=== PATIENT | male | born 2000 | race African-American/Black ===

== ENCOUNTER 2023-02-16 09:07 | Emergency (ER) | payer OTHER ==
[~2023-02-16] VITALS: Ht 180.3 cm; Wt 110.9 kg
[2023-02-16 09:46] VITALS: BP 131/76
[2023-02-16] MEDS ORDERED: CLIN300C58 PO (09:54)
[2023-02-16] MEDS ORDERED: SULF-261 PO (09:54)
[2023-02-16] MEDS ORDERED: IBUP-1492 PO (09:54)
== END 2023-02-16 10:12 | disposition home or self-care (01) ==
LOC: EMS 09:14
DX: K61.1 Rectal abscess (principal)
CPT/HCPCS: 99283; Z7502

== ENCOUNTER 2023-04-01 15:42 | Emergency (ER) | payer OTHER ==
[~2023-04-01] VITALS: Ht 180.3 cm; Wt 104.5 kg
[~2023-04-01 15:42] MED LIST: CLIN300C58 PO; IBUP-1492 PO; SULF-261 PO
[2023-04-01] MEDS ORDERED: CLIN300C58 PO (16:12)
[2023-04-01] MEDS ORDERED: IBUP-1492 PO (16:12)
[2023-04-01] MEDS ORDERED: SULF-261 PO (16:12)
[2023-04-01 16:44] VITALS: BP 129/84
== END 2023-04-01 16:58 | disposition home or self-care (01) ==
LOC: EMS 15:48
DX: L05.01 Pilonidal cyst with abscess (principal)
CPT/HCPCS: 99283; Z7502

== ENCOUNTER 2023-08-21 10:23 | Emergency (ER) | payer OTHER ==
[~2023-08-21] VITALS: Ht 180.3 cm; Wt 109.1 kg
[2023-08-21 10:39] VITALS: TEMP 100.6
[2023-08-21] MEDS ORDERED: DOXY100C5 PO (10:41)
[2023-08-21] MEDS ORDERED: VANCOMYCIN 1GM/WATER(PEG/NADA) 200 ML IV ONE (12:45)
[2023-08-21] MEDS ORDERED: SODIUM CHLORIDE 0.9% 2,000 ML IV ONE (12:45)
[2023-08-21] MEDS ORDERED: ACETAMINOPHEN 500 MG TABLET PO ONE (12:45)
[2023-08-21] MEDS ORDERED: PIPERACILLIN/TAZO 3.375 GM/D5W 50 ML IV ONE (12:45)
[2023-08-21] MEDS ORDERED: ADAL80PE SQ (12:48)
[2023-08-21 13:37] LABS: BASOPHILS % (AUTO) 0.5 % (0.0-2.0); EOSINOPHILS % (AUTO) 0.5 % (1.0-6.0); HEMATOCRIT 40.7 % (41-53); HEMOGLOBIN 13.4 g/dL (13.5-17.5); LYMPHOCYTES # (AUTO) 2.7 K/uL (1.0-4.8); LYMPHOCYTES % (AUTO) 18.6 % (22.0-44.0); MEAN CORPUSCULAR HEMOGLOBIN 26.9 pg (26.0-34.0); MEAN CORPUSCULAR HGB CONC 32.9 G/dL (31.0-37.0); MEAN CORPUSCULAR VOLUME 82 fL (80-100); MONOCYTES # (AUTO) 1.1 K/uL (0.1-1.0); MONOCYTES % (AUTO) 7.8 % (2.0-9.0); NEUTROPHILS # (AUTO) 10.6 K/uL (1.8-7.7); NEUTROPHILS % (AUTO) 72.6 % (40.0-70.0); PLATELET COUNT (AUTO) 462 K/uL (150-450); RED BLOOD CELL COUNT(AUTO) 4.98 MIL/uL (4.50-5.90); RED CELL DISTRIBUTION WIDTH 13.2 % (11.5-14.5); WHITE BLOOD COUNT (AUTO) 14.5 K/uL (4.5-11.0)
[2023-08-21 14:00] LABS: LACTIC ACID 1.2 mmol/L (0.4-2.0)
[2023-08-21 14:33] LABS: ANION GAP 11 mmol/L (8-16); CALCIUM, TOTAL 9.3 mg/dL (8.8-10.5); CARBON DIOXIDE 26 mmol/L (22-29); CHLORIDE 100 mmol/L (98-107); CREATININE 1.09 mg/dL (0.60-1.30); GLOMERULAR FILTR. RATE CALC > 60 mL/min (>60); GLUCOSE,RANDOM 84 mg/dL (70-110); POTASSIUM 3.6 mmol/L (3.5-5.1); SODIUM SERUM 137 mmol/L (136-145); UREA NITROGEN, BLOOD 11 mg/dL (7-18)
[2023-08-21 14:38] LABS: ALANINE AMINOTRANSFERASE 37 U/L (12-78); ALBUMIN 3.8 g/dL (3.4-5.0); ALKALINE PHOSPHATASE 106 U/L (46-116); ASPARTATE AMINOTRANSFERASE 24 U/L (15-37); BILIRUBIN,TOTAL 0.5 mg/dL (0.1-1.0); LIPASE 21 U/L (16-77); TOTAL PROTEIN, SERUM 8.9 g/dL (6.4-8.2)
[2023-08-21] MEDS ORDERED: HYDROmorphone HCL 2 MG/ML SYRINGE IM ONE (15:15)
[2023-08-21] MEDS ORDERED: ONDANSETRON HCL 4 MG/2 ML VIAL IM ONE (15:15)
[2023-08-21] MEDS ORDERED: ONDANSETRON HCL 4 MG/2 ML VIAL IVP ONE (15:30)
[2023-08-21] MEDS ORDERED: HYDROmorphone HCL 2 MG/ML SYRINGE IVP ONE (15:30)
[2023-08-21] MEDS ORDERED: IBUP-1554 PO (17:03)
[2023-08-21] MEDS ORDERED: POLY238P PO (17:03)
[2023-08-21] MEDS ORDERED: HYDR-4072 PO (17:03)
[2023-08-21] MEDS ORDERED: CEPH-558 PO (17:03)
[2023-08-21 17:24] VITALS: BP 126/81; PULSE 74; RESP 16
== END 2023-08-21 17:34 | disposition home or self-care (01) ==
LOC: EMS 10:28
DX: L05.01 Pilonidal cyst with abscess (principal)
CPT/HCPCS: 10080; 99284; 96365; 96375; 80053; 83605; 83690; 85025; 87040; 36415; 96368; 84145; J1170; J2405; J2543; Q9967; J7030

== ENCOUNTER 2023-08-24 09:24 | Emergency (ER) | payer OTHER ==
[~2023-08-24] VITALS: Ht 180.3 cm; Wt 106.8 kg
[~2023-08-24 09:24] MED LIST changes: +ADAL80PE SQ; +CEPH-558 PO; -CLIN300C58 PO; +DOXY100C5 PO; +HYDR-4072 PO; -IBUP-1492 PO; +IBUP-1554 PO; +POLY238P PO; -SULF-261 PO
[2023-08-24] MEDS ORDERED: unknown antibiotic PO (09:27)
[2023-08-24 09:30] VITALS: TEMP 98.3
[2023-08-24 10:43] VITALS: BP 138/66; PULSE 80; RESP 18
== END 2023-08-24 10:48 | disposition home or self-care (01) ==
LOC: EMS 09:27
DX: L05.01 Pilonidal cyst with abscess (principal); Z48.00 Encounter for change or removal of nonsurgical wound dressing
CPT/HCPCS: 99281; Z7502

== ENCOUNTER 2023-10-28 16:52 | Inpatient (IN) | payer MEDICAID, OTHER ==
[~2023-10-28] VITALS: Ht 180.3 cm; Wt 81.8 kg
[~2023-10-28 16:52] MED LIST changes: +ADAL40PE5 SQ; -ADAL80PE SQ; +AMOX1TAB16 PO; -CEPH-558 PO; -DOXY100C5 PO; -IBUP-1554 PO; -POLY238P PO; +POLY510P31 PO
[2023-10-28] MEDS ORDERED: CefTRIAXone 1 GM/DEXTROSE 50 ML IV ONE (18:00)
[2023-10-28] MEDS ORDERED: 0.9% SODIUM CHLORIDE 10 ML SYRINGE IVP PRN (18:00)
[2023-10-28] MEDS ORDERED: ONDANSETRON HCL 4 MG/2 ML VIAL IVP ONE (18:00)
[2023-10-28] MEDS ORDERED: SODIUM CHLORIDE 0.9% 2,450 ML IV ONE (18:00)
[2023-10-28] MEDS ORDERED: HYDROmorphone HCL 2 MG/ML SYRINGE IVP ONE (18:00)
[2023-10-28 18:31] LABS: BASOPHILS % (AUTO) 0.9 % (0.0-2.0); EOSINOPHILS % (AUTO) 1.4 % (1.0-6.0); HEMATOCRIT 34.7 % (41-53); HEMOGLOBIN 11.3 g/dL (13.5-17.5); LYMPHOCYTES # (AUTO) 2.6 K/uL (1.0-4.8); LYMPHOCYTES % (AUTO) 26.3 % (22.0-44.0); MEAN CORPUSCULAR HEMOGLOBIN 26.7 pg (26.0-34.0); MEAN CORPUSCULAR HGB CONC 32.5 G/dL (31.0-37.0); MEAN CORPUSCULAR VOLUME 82 fL (80-100); MONOCYTES % (AUTO) 10.1 % (2.0-9.0); NEUTROPHILS # (AUTO) 6.1 K/uL (1.8-7.7); NEUTROPHILS % (AUTO) 61.3 % (40.0-70.0); PLATELET COUNT (AUTO) 424 K/uL (150-450); RED BLOOD CELL COUNT(AUTO) 4.23 MIL/uL (4.50-5.90); RED CELL DISTRIBUTION WIDTH 13.9 % (11.5-14.5)
[2023-10-28 18:43] LABS: ANION GAP 9 mmol/L (8-16); CARBON DIOXIDE 25 mmol/L (22-29); CHLORIDE 104 mmol/L (98-107); CREATININE 1.03 mg/dL (0.60-1.30); GLOMERULAR FILTR. RATE CALC > 60 mL/min (>60); GLUCOSE,RANDOM 93 mg/dL (70-110); POTASSIUM 3.5 mmol/L (3.5-5.1); SODIUM SERUM 138 mmol/L (136-145); UREA NITROGEN, BLOOD 6 mg/dL (7-18)
[2023-10-28 18:46] LABS: PROTHROMBIN TIME 10.9 SEC (9.4-11.6)
[2023-10-28 18:48] LABS: ALANINE AMINOTRANSFERASE 24 U/L (12-78); ALBUMIN 3.3 g/dL (3.4-5.0); ALKALINE PHOSPHATASE 95 U/L (46-116); ASPARTATE AMINOTRANSFERASE 22 U/L (15-37); BILIRUBIN,TOTAL 0.5 mg/dL (0.1-1.0); TOTAL PROTEIN, SERUM 8.4 g/dL (6.4-8.2)
[2023-10-28 18:53] LABS: LACTIC ACID 1.6 mmol/L (0.4-2.0)
[2023-10-28] MEDS ORDERED: MORPHINE SULFATE 2 MG/ML SYRINGE IVP PRN (20:30)
[2023-10-28] MEDS ORDERED: MetroNIDAZOLE 500 MG/NACL 100 ML IV ONE (20:30)
[2023-10-28] MEDS ORDERED: ONDANSETRON HCL 4 MG/2 ML VIAL IVP PRN (20:30)
[2023-10-28] MEDS ORDERED: ACETAMINOPHEN 325 MG TABLET PO PRN (20:30)
[2023-10-28] MEDS: CeFAZolin 1 GM/DEXTROSE 50 ML IV SCH (21:00)
[2023-10-28] MEDS: RINGERS SOLUTION,LACTATED 1,000 ML IV SCH (21:00)
[2023-10-28] MEDS: DOCUSATE SODIUM 100 MG CAPSULE PO SCH (21:00)
[2023-10-28 22:22] LABS: COVID AG,FIA SOURCE NASAL SWAB
[2023-10-28 22:28] LABS: APPEARANCE,URINE CLEAR (CLEAR); BILIRUBIN,URINE NEGATIVE (NEGATIVE); COLOR,URINE YELLOW (YELLOW); GLUCOSE, URINE (UA) NEGATIVE (NEGATIVE); KETONES,URINE TRACE mg/dL (NEGATIVE); LEUKOCYTE ESTERASE ,URINE NEGATIVE (NEGATIVE); NITRATE,URINE NEGATIVE (NEGATIVE); OCCULT BLOOD,URINE NEGATIVE (NEGATIVE); PH,URINE 6.5 (5.0-8.0); PROTEIN,URINE 30-70 mg/dL (NEGATIVE); SPECIFIC GRAVITIY, URINE 1.022 (1.003-1.030)
[2023-10-28 22:39] LABS: SARS-COV2 (COVID) ANTIGEN,FIA Negative (Negative)
[2023-10-29] MEDS: HEPARIN SODIUM,PORCINE 5,000 UNITS/ML VIAL SQ SCH ×5 (00:11→23:21)
[2023-10-29] MEDS: CeFAZolin 1 GM/DEXTROSE 50 ML IV SCH ×3 (04:30→21:18)
[2023-10-29] MEDS: RINGERS SOLUTION,LACTATED 1,000 ML IV SCH (04:30)
[2023-10-29] MEDS: MetroNIDAZOLE 500 MG TABLET PO SCH ×5 (06:00→21:19)
[2023-10-29 06:56] LABS: BASOPHILS % (AUTO) 1.1 % (0.0-2.0); EOSINOPHILS % (AUTO) 2.1 % (1.0-6.0); HEMOGLOBIN 11.1 g/dL (13.5-17.5); LYMPHOCYTES # (AUTO) 2.5 K/uL (1.0-4.8); LYMPHOCYTES % (AUTO) 29.6 % (22.0-44.0); MEAN CORPUSCULAR HEMOGLOBIN 27.5 pg (26.0-34.0); MEAN CORPUSCULAR HGB CONC 33.6 G/dL (31.0-37.0); MEAN CORPUSCULAR VOLUME 82 fL (80-100); MONOCYTES % (AUTO) 11.2 % (2.0-9.0); NEUTROPHILS # (AUTO) 4.8 K/uL (1.8-7.7); PLATELET COUNT (AUTO) 401 K/uL (150-450); RED BLOOD CELL COUNT(AUTO) 4.04 MIL/uL (4.50-5.90); RED CELL DISTRIBUTION WIDTH 13.5 % (11.5-14.5); WHITE BLOOD COUNT (AUTO) 8.5 K/uL (4.5-11.0)
[2023-10-29 07:11] LABS: ANION GAP 7 mmol/L (8-16); CALCIUM, TOTAL 8.3 mg/dL (8.8-10.5); CARBON DIOXIDE 28 mmol/L (22-29); CHLORIDE 103 mmol/L (98-107); CREATININE 0.84 mg/dL (0.60-1.30); GLOMERULAR FILTR. RATE CALC > 60 mL/min (>60); GLUCOSE,RANDOM 101 mg/dL (70-110); POTASSIUM 3.5 mmol/L (3.5-5.1); SODIUM SERUM 138 mmol/L (136-145); UREA NITROGEN, BLOOD 4 mg/dL (7-18)
[2023-10-29] MEDS: DOCUSATE SODIUM 100 MG CAPSULE PO SCH ×3 (08:50→21:19)
[2023-10-29] MEDS ORDERED: RINGERS SOLUTION,LACTATED 1,000 ML IV ONE ×2 (09:13→09:30)
[2023-10-29] MEDS ORDERED: ETHYL ALCOHOL 62% ANTISEPTIC NASAL SANITIZER 0.6 ML AMPUL NASAL ONE (09:45)
[2023-10-29] MEDS ORDERED: BUPIVACAINE HCL/PF 0.5% 30 ML VIAL ONE (10:15)
[2023-10-29] MEDS ORDERED: LIDOCAINE 2%/EPI 1:200,000/PF 20 ML VIAL ONE (10:15)
[2023-10-29] MEDS ORDERED: SODIUM CL IRRIG SOLN BAG 3,000 ML IRRIG ONE (10:16)
[2023-10-29] MEDS ORDERED: ONDANSETRON HCL 4 MG/2 ML VIAL IM PRN (11:15)
[2023-10-29] MEDS ORDERED: HYDROCODONE/ACETAMINOPHEN 5-325 MG TABLET PO PRN (11:15)
[2023-10-29] MEDS ORDERED: MORPHINE SULFATE 2 MG/ML SYRINGE IVP PRN (11:15)
[2023-10-29] MEDS ORDERED: ACETAMINOPHEN 500 MG TABLET PO PRN (11:15)
[2023-10-29] MEDS ORDERED: IBUPROFEN 800 MG TABLET PO PRN (11:15)
[2023-10-29] MEDS ORDERED: CeFAZolin 1 GM/DEXTROSE 50 ML IV ONE (12:19)
[2023-10-29] MEDS ORDERED: INFLUENZA VIRUS VACCINE QVS 2023-24 (6MO+)/PF 60 MCG/0.5 ML SYRINGE IM. ONE (13:45)
[2023-10-29 17:13] VITALS: BP 115/61; PULSE 76; RESP 20; TEMP 98.3
[2023-10-29 20:02] VITALS: BP 124/57; PULSE 63; RESP 20; TEMP 99.3
[2023-10-29] MEDS ORDERED: SODIUM CHLORIDE 0.9% 250 ML IV ONE (21:05)
[2023-10-30] MEDS ORDERED: LIDOCAINE/PF 2% 5 ML VIAL IM ONE (01:18)
[2023-10-30] MEDS ORDERED: SUGAMMADEX SODIUM 200 MG/2 ML VIAL IVP ONE (01:18)
[2023-10-30] MEDS ORDERED: DEXAMETHASONE SOD PHOS 4 MG/ML VIAL IVP ONE (01:18)
[2023-10-30] MEDS ORDERED: MIDAZOLAM HCL 2 MG/2 ML VIAL IVP ONE (01:18)
[2023-10-30] MEDS ORDERED: FentaNYL CITRATE PF 100 MCG/2 ML VIAL IVP ONE (01:18)
[2023-10-30] MEDS ORDERED: ROCURONIUM BROMIDE 10 MG/ML 5 ML VIAL IVP ONE (01:18)
[2023-10-30] MEDS ORDERED: PROPOFOL 1% 20 ML VIAL IVP ONE (01:18)
[2023-10-30 03:58] VITALS: BP 108/61; PULSE 56; RESP 18; TEMP 97.8
[2023-10-30] MEDS: CeFAZolin 1 GM/DEXTROSE 50 ML IV SCH ×3 (04:00→21:23)
[2023-10-30] MEDS: RINGERS SOLUTION,LACTATED 1,000 ML IV SCH (06:00)
[2023-10-30] MEDS: HEPARIN SODIUM,PORCINE 5,000 UNITS/ML VIAL SQ SCH ×2 (08:00→16:00)
[2023-10-30] MEDS: MetroNIDAZOLE 500 MG TABLET PO SCH ×3 (09:07→21:23)
[2023-10-30] MEDS: DOCUSATE SODIUM 100 MG CAPSULE PO SCH ×2 (09:07→21:00)
[2023-10-30 09:09] VITALS: BP 121/58; PULSE 51; RESP 20; TEMP 98
[2023-10-30 17:02] VITALS: BP 127/67; PULSE 63; RESP 20; TEMP 98.4
[2023-10-30 20:05] VITALS: BP 102/54; PULSE 57; RESP 18; TEMP 98.2
[2023-10-31 04:35] VITALS: BP 112/62; PULSE 62; RESP 20; TEMP 98.2
[2023-10-31] MEDS: CeFAZolin 1 GM/DEXTROSE 50 ML IV SCH ×2 (05:22→13:13)
[2023-10-31] MEDS: HEPARIN SODIUM,PORCINE 5,000 UNITS/ML VIAL SQ SCH ×2 (08:00)
[2023-10-31] MEDS: MetroNIDAZOLE 500 MG TABLET PO SCH (08:12)
[2023-10-31] MEDS: DOCUSATE SODIUM 100 MG CAPSULE PO SCH (08:12)
[2023-10-31 09:08] VITALS: BP 116/62; PULSE 49; RESP 20; TEMP 97.9
[2023-10-31] MEDS ORDERED: IBUP-1493 PO (14:47)
[2023-10-31] MEDS ORDERED: AMOX1TAB16 PO (14:47)
[2023-10-31] MEDS ORDERED: METR500 PO (14:47)
== END 2023-10-31 16:01 | disposition home or self-care (01) | DRG 223 ==
LOC: EMS 17:26 → AHU 23:37 → 6S 10-29 16:49
PROVIDERS: ADMIT Internal Medicine; ATTEND Internal Medicine
PROC: 0D9P0ZZ Drainage of Rectum, Open Approach (ICD-10-PCS; principal; 2023-10-29 10:50)
DX: K61.2 Anorectal abscess (principal); D64.9 Anemia, unspecified; Z20.822 Contact with and (suspected) exposure to COVID-19
CPT/HCPCS: 71045; 80048; 80053; 81003; 83605; 83735; 84145; 85025; 85610; 87040; 87070; 87081; 87101; 87205; 93005; 99285; G0378; J0690; J0696; J1100; J1170; J1644; J2250; J2405; J2704; J3010; J3490; J7030; J7050; J7120; Q9967; 36415-L1; 36415-TC

== ENCOUNTER 2024-10-29 10:32 | Inpatient (IN) | payer MEDICAID, OTHER ==
[~2024-10-29] VITALS: Ht 180.3 cm; Wt 119.4 kg
[~2024-10-29 10:32] MED LIST changes: +AMOX-457 PO; -AMOX1TAB16 PO; +IBUP-1493 PO; +METR500 PO
[2024-10-29] MEDS ORDERED: 0.9% SODIUM CHLORIDE 10 ML SYRINGE IVP ONE (11:26)
[2024-10-29 11:27] LABS: BASOPHILS % (AUTO) 0.4 % (0.0-2.0); EOSINOPHILS % (AUTO) 0.6 % (1.0-6.0); HEMATOCRIT 40.9 % (41-53); HEMOGLOBIN 13.3 g/dL (13.5-17.5); LYMPHOCYTES # (AUTO) 2.4 K/uL (1.0-4.8); LYMPHOCYTES % (AUTO) 14.7 % (22.0-44.0); MEAN CORPUSCULAR HEMOGLOBIN 26.6 pg (26.0-34.0); MEAN CORPUSCULAR HGB CONC 32.6 G/dL (31.0-37.0); MEAN CORPUSCULAR VOLUME 82 fL (80-100); MONOCYTES # (AUTO) 1.2 K/uL (0.1-1.0); MONOCYTES % (AUTO) 7.5 % (2.0-9.0); NEUTROPHILS # (AUTO) 12.3 K/uL (1.8-7.7); NEUTROPHILS % (AUTO) 76.8 % (40.0-70.0); PLATELET COUNT (AUTO) 440 K/uL (150-450); RED BLOOD CELL COUNT(AUTO) 5.01 MIL/uL (4.50-5.90); RED CELL DISTRIBUTION WIDTH 12.8 % (11.5-14.5); WHITE BLOOD COUNT (AUTO) 16.1 K/uL (4.5-11.0)
[2024-10-29] MEDS ORDERED: IOHEXOL 350 MG/ML 100 ML VIAL ONE (11:27)
[2024-10-29] MEDS ORDERED: SODIUM CHLORIDE 0.9% 100 ML ONE (11:27)
[2024-10-29 11:42] LABS: ANION GAP 10 mmol/L (8-16); CALCIUM, TOTAL 8.9 mg/dL (8.8-10.5); CARBON DIOXIDE 28 mmol/L (22-29); CHLORIDE 101 mmol/L (98-107); CREATININE 1.24 mg/dL (0.60-1.30); GLOMERULAR FILTR. RATE CALC > 60 mL/min (>60); GLUCOSE,RANDOM 119 mg/dL (70-110); POTASSIUM 3.6 mmol/L (3.5-5.1); SODIUM SERUM 139 mmol/L (136-145); UREA NITROGEN, BLOOD 9 mg/dL (7-18)
[2024-10-29] MEDS: ACETAMINOPHEN 500 MG TABLET PO ONE (11:48)
[2024-10-29] MEDS: KETOROLAC TROMETHAMINE 30 MG/ML VIAL IVP ONE (11:48)
[2024-10-29] MEDS ORDERED: KETOROLAC TROMETHAMINE 60 MG/2 ML VIAL IM ONE (12:00)
[2024-10-29] MEDS ORDERED: PROPOFOL 1% ISO-OSM 1000 MG/100 ML BOTTLE IV ONE (12:00)
[2024-10-29] MEDS ORDERED: GLYCOPYRROLATE 0.2 MG/ML VIAL IM ONE (12:00)
[2024-10-29] MEDS ORDERED: DEXAMETHASONE SOD PHOS 4 MG/ML VIAL IVP ONE (12:00)
[2024-10-29] MEDS ORDERED: CeFAZolin SODIUM 1 GM VIAL IVP ONE (12:00)
[2024-10-29] MEDS ORDERED: SUCCINYLCHOLINE CHLORIDE 20 MG/ML 10 ML VIAL IVP ONE (12:00)
[2024-10-29] MEDS ORDERED: ONDANSETRON HCL 4 MG/2 ML VIAL IVP ONE (12:00)
[2024-10-29] MEDS ORDERED: METOCLOPRAMIDE HCL 5 MG/ML 2 ML VIAL IVP ONE (12:00)
[2024-10-29] MEDS ORDERED: FentaNYL CITRATE PF 100 MCG/2 ML VIAL IVP ONE (12:00)
[2024-10-29] MEDS ORDERED: MIDAZOLAM HCL 2 MG/2 ML VIAL IVP ONE (12:00)
[2024-10-29] MEDS ORDERED: LIDOCAINE/PF 2% 5 ML VIAL IM ONE (12:00)
[2024-10-29] MEDS: SODIUM CHLORIDE 0.9% 1,000 ML IV ONE (13:59)
[2024-10-29] MEDS: MetroNIDAZOLE 500 MG/NACL 100 ML IV ONE (13:59)
[2024-10-29] MEDS ORDERED: SODIUM CHLORIDE 0.9% 1,000 ML IV ONE (14:00)
[2024-10-29] MEDS ORDERED: SODIUM CHLORIDE 0.9% 1,600 ML IV ONE (14:00)
[2024-10-29] MEDS ORDERED: ACETAMINOPHEN 325 MG TABLET PO PRN (14:15)
[2024-10-29] MEDS ORDERED: MORPHINE SULFATE 2 MG/ML SYRINGE IVP PRN (14:15)
[2024-10-29] MEDS ORDERED: ZOLPIDEM TARTRATE 5 MG TABLET PO PRN (14:15)
[2024-10-29] MEDS ORDERED: ONDANSETRON HCL 4 MG/2 ML VIAL IVP PRN (14:15)
[2024-10-29 14:44] LABS: LACTIC ACID 0.6 mmol/L (0.4-2.0)
[2024-10-29] MEDS: LEVOFLOXACIN 750 MG/D5% WATER 150 ML IV ONE (14:58)
[2024-10-29 15:18] LABS: APPEARANCE,URINE CLEAR (CLEAR); BILIRUBIN,URINE NEGATIVE (NEGATIVE); COLOR,URINE YELLOW (YELLOW); GLUCOSE, URINE (UA) NEGATIVE (NEGATIVE); KETONES,URINE NEGATIVE (NEGATIVE); LEUKOCYTE ESTERASE ,URINE NEGATIVE (NEGATIVE); NITRATE,URINE NEGATIVE (NEGATIVE); OCCULT BLOOD,URINE NEGATIVE (NEGATIVE); PH,URINE 7.5 (5.0-8.0); PROTEIN,URINE TRACE mg/dL (NEGATIVE)
[2024-10-29] MEDS ORDERED: RINGERS SOLUTION,LACTATED 1,000 ML IV ONE (17:09)
[2024-10-29] MEDS ORDERED: SODIUM CL IRRIG SOLN BAG 0 ML IRRIG ONE (17:14)
[2024-10-29] MEDS: ETHYL ALCOHOL 62% ANTISEPTIC NASAL SANITIZER 0.6 ML AMPUL NASAL ONE (17:32)
[2024-10-29] MEDS: CHLORHEXIDINE GLUCONATE 2% TOWELETTE [2'S/6'S] TP ONE (17:32)
[2024-10-29] MEDS ORDERED: HYDROmorphone HCL 2 MG/ML SYRINGE IVP PRN (18:15)
[2024-10-29] MEDS: BUPIVACAINE 0.25%/EPI 1:200,000/PF 30 ML VIAL ONE (18:35)
[2024-10-29] MEDS ORDERED: FentaNYL CITRATE PF 100 MCG/2 ML VIAL ONE (19:30)
[2024-10-29] MEDS: FentaNYL CITRATE PF 100 MCG/2 ML VIAL IVP PRN (19:33)
[2024-10-29 19:58] VITALS: BP 110/51; PULSE 102; RESP 20; TEMP 98.5; O2SAT 96
[2024-10-29] MEDS: OXYGEN THERAPY IH SCH (20:00)
[2024-10-29] MEDS: DOCUSATE SODIUM 100 MG CAPSULE PO SCH (21:00)
[2024-10-29] MEDS ORDERED: SODIUM CHLORIDE 0.9% 250 ML IV ONE (23:55)
[2024-10-30] MEDS: PIPERACILLIN/TAZO 3.375 GM/D5W 50 ML IV SCH (00:13)
[2024-10-30 05:05] VITALS: BP 112/54; PULSE 67; RESP 18; TEMP 98.3; O2SAT 94
[2024-10-30 08:13] VITALS: BP 115/75; PULSE 67; RESP 18; TEMP 98; O2SAT 97
[2024-10-30 16:09] VITALS: BP 113/62; PULSE 63; RESP 18; TEMP 98.1; O2SAT 95
[2024-10-30 16:29] LABS: BASOPHILS % (AUTO) 0.3 % (0.0-2.0); EOSINOPHILS % (AUTO) 0.1 % (1.0-6.0); HEMATOCRIT 39.5 % (41-53); HEMOGLOBIN 12.8 g/dL (13.5-17.5); LYMPHOCYTES # (AUTO) 2.5 K/uL (1.0-4.8); LYMPHOCYTES % (AUTO) 12.6 % (22.0-44.0); MEAN CORPUSCULAR HEMOGLOBIN 26.7 pg (26.0-34.0); MEAN CORPUSCULAR HGB CONC 32.5 G/dL (31.0-37.0); MEAN CORPUSCULAR VOLUME 82 fL (80-100); MONOCYTES # (AUTO) 1.4 K/uL (0.1-1.0); MONOCYTES % (AUTO) 7.2 % (2.0-9.0); NEUTROPHILS # (AUTO) 15.6 K/uL (1.8-7.7); NEUTROPHILS % (AUTO) 79.8 % (40.0-70.0); PLATELET COUNT (AUTO) 503 K/uL (150-450); RED CELL DISTRIBUTION WIDTH 12.9 % (11.5-14.5); WHITE BLOOD COUNT (AUTO) 19.5 K/uL (4.5-11.0)
[2024-10-30 16:41] LABS: ANION GAP 12 mmol/L (8-16); CALCIUM, TOTAL 9.1 mg/dL (8.8-10.5); CARBON DIOXIDE 25 mmol/L (22-29); CHLORIDE 103 mmol/L (98-107); CREATININE 0.99 mg/dL (0.60-1.30); GLOMERULAR FILTR. RATE CALC > 60 mL/min (>60); GLUCOSE,RANDOM 122 mg/dL (70-110); POTASSIUM 4.1 mmol/L (3.5-5.1); SODIUM SERUM 140 mmol/L (136-145); UREA NITROGEN, BLOOD 10 mg/dL (7-18)
[2024-10-30 16:51] LABS: ALANINE AMINOTRANSFERASE 42 U/L (12-78); ALBUMIN 3.3 g/dL (3.4-5.0); ALKALINE PHOSPHATASE 112 U/L (46-116); ASPARTATE AMINOTRANSFERASE 32 U/L (15-37); BILIRUBIN,TOTAL 0.3 mg/dL (0.1-1.0); TOTAL PROTEIN, SERUM 8.5 g/dL (6.4-8.2)
[2024-10-30 20:10] VITALS: BP 120/71; PULSE 62; RESP 18; TEMP 98.3; O2SAT 99
[2024-10-30] MEDS: BENZOCAINE/MENTHOL LOZENGE PO PRN (20:58)
[2024-10-31 04:45] VITALS: BP 128/85; PULSE 60; RESP 18; TEMP 98; O2SAT 98
[2024-10-31 07:52] VITALS: BP 130/75; PULSE 63; RESP 18; TEMP 97.8; O2SAT 95
[2024-10-31 14:23] LABS: BASOPHILS % (AUTO) 0.8 % (0.0-2.0); EOSINOPHILS % (AUTO) 1.2 % (1.0-6.0); HEMATOCRIT 38.7 % (41-53); HEMOGLOBIN 12.5 g/dL (13.5-17.5); LYMPHOCYTES # (AUTO) 4.6 K/uL (1.0-4.8); LYMPHOCYTES % (AUTO) 34.1 % (22.0-44.0); MEAN CORPUSCULAR HEMOGLOBIN 26.6 pg (26.0-34.0); MEAN CORPUSCULAR HGB CONC 32.4 G/dL (31.0-37.0); MEAN CORPUSCULAR VOLUME 82 fL (80-100); MONOCYTES # (AUTO) 0.9 K/uL (0.1-1.0); MONOCYTES % (AUTO) 6.3 % (2.0-9.0); NEUTROPHILS # (AUTO) 7.8 K/uL (1.8-7.7); NEUTROPHILS % (AUTO) 57.6 % (40.0-70.0); PLATELET COUNT (AUTO) 503 K/uL (150-450); RED BLOOD CELL COUNT(AUTO) 4.71 MIL/uL (4.50-5.90); RED CELL DISTRIBUTION WIDTH 12.9 % (11.5-14.5); WHITE BLOOD COUNT (AUTO) 13.6 K/uL (4.5-11.0)
[2024-10-31] MEDS ORDERED: AMOX-457 PO (15:13)
[2024-10-31 15:32] VITALS: BP 118/62; PULSE 68; RESP 18; TEMP 98.2; O2SAT 97
== END 2024-10-31 16:30 | disposition home or self-care (01) | DRG 226 ==
LOC: EMS 10:41 → EDH 14:54 → 4E 19:50
PROVIDERS: ADMIT Internal Medicine; ATTEND Internal Medicine
PROC: 0D9P0ZZ Drainage of Rectum, Open Approach (ICD-10-PCS; principal; 2024-10-29 18:00)
DX: K61.1 Rectal abscess (principal); R65.10 Systemic inflammatory response syndrome (SIRS) of non-infectious origin without acute organ dysfunction; K76.0 Fatty (change of) liver, not elsewhere classified; K42.9 Umbilical hernia without obstruction or gangrene
CPT/HCPCS: 74177; 80048; 80053; 81003; 83605; 85025; 87040; 87070; 87081; 87205; 99285; G0378; J0330; J0690; J1100; J1885; J1956; J2250; J2405; J2543; J2704; J2765; J3010; J3490; J7030; J7050; J7120

== ENCOUNTER 2025-10-11 18:27 | Inpatient (IN) | payer MEDICAID ==
[~2025-10-11] VITALS: Ht 180.3 cm; Wt 109.1 kg
[~2025-10-11 18:27] MED LIST changes: -ADAL40PE5 SQ; -HYDR-4072 PO; -IBUP-1493 PO; -METR500 PO
[2025-10-11 20:05] LABS: PLATELET COUNT (AUTO) 426 K/uL (150-450); RED BLOOD CELL COUNT(AUTO) 5.12 MIL/uL (4.50-5.90); RED CELL DISTRIBUTION WIDTH 12.8 % (11.5-14.5); WHITE BLOOD COUNT (AUTO) 12.3 K/uL (4.5-11.0)
[2025-10-11 20:16] LABS: CALCIUM, TOTAL 8.9 mg/dL (8.8-10.5); CREATININE 1.40 mg/dL (0.60-1.30); GLOMERULAR FILTR. RATE CALC > 60 mL/min (>60); GLUCOSE,RANDOM 85 mg/dL (70-110); SODIUM SERUM 140 mmol/L (136-145); UREA NITROGEN, BLOOD 12 mg/dL (7-18)
[2025-10-11] MEDS ORDERED: 0.9% SODIUM CHLORIDE 10 ML SYRINGE IVP ONE (21:00)
[2025-10-11] MEDS ORDERED: 0.9% SODIUM CHLORIDE 10 ML SYRINGE IVP PRN (21:00)
[2025-10-11] MEDS ORDERED: IOHEXOL 300 MG/ML 100 ML VIAL ONE (21:00)
[2025-10-11] MEDS ORDERED: SODIUM CHLORIDE 0.9% 100 ML ONE (21:00)
[2025-10-11] MEDS: SODIUM CHLORIDE 0.9% 3,250 ML IV ONE (21:18)
[2025-10-11 21:40] LABS: LACTIC ACID 1.6 mmol/L (0.4-2.0)
[2025-10-11] MEDS: PIPERACILLIN/TAZO 3.375 GM/D5W 50 ML IV ONE (22:45)
[2025-10-11] MEDS ORDERED: MORPHINE SULFATE 4 MG/ML SYRINGE IVP PRN (23:00)
[2025-10-11] MEDS ORDERED: ONDANSETRON HCL 4 MG/2 ML VIAL IVP PRN (23:00)
[2025-10-11] MEDS: SODIUM CHLORIDE 0.9% 1,000 ML IV ONE (23:00)
[2025-10-11] MEDS ORDERED: MAGNESIUM HYDROXIDE SUSPENSION 30 ML UDCUP PO PRN (23:00)
[2025-10-11 23:56] LABS: APPEARANCE,URINE CLEAR (CLEAR); GLUCOSE, URINE (UA) NEGATIVE (NEGATIVE); LEUKOCYTE ESTERASE ,URINE NEGATIVE (NEGATIVE); NITRATE,URINE NEGATIVE (NEGATIVE); OCCULT BLOOD,URINE NEGATIVE (NEGATIVE); SPECIFIC GRAVITIY, URINE 1.041 (1.003-1.030)
[2025-10-12 01:30] VITALS: BP 141/81; PULSE 101; PULSE 90; RESP 18; RESP 20; TEMP 100.8; O2SAT 100
[2025-10-12] MEDS: ACETAMINOPHEN 325 MG TABLET PO PRN (01:39)
[2025-10-12] MEDS: ZOLPIDEM TARTRATE 5 MG TABLET PO PRN (01:39)
[2025-10-12 04:00] VITALS: BP 137/73; PULSE 96; RESP 18; TEMP 100; O2SAT 99
[2025-10-12] MEDS: PIPERACILLIN/TAZO 3.375 GM/D5W 50 ML IV SCH (06:42)
[2025-10-12] MEDS: OxyCODONE HCL/ACETAMINOPHEN 5-325 MG TABLET PO PRN (07:09)
[2025-10-12 08:17] VITALS: BP 131/76; PULSE 78; RESP 18; TEMP 98.1; O2SAT 96
[2025-10-12] MEDS: DOCUSATE SODIUM 100 MG CAPSULE PO SCH (08:40)
[2025-10-12] MEDS ORDERED: ONDANSETRON HCL 4 MG/2 ML VIAL ONE (12:00)
[2025-10-12] MEDS ORDERED: ROCURONIUM BROMIDE 10 MG/ML 5 ML VIAL ONE (12:00)
[2025-10-12] MEDS ORDERED: SUGAMMADEX SODIUM 200 MG/2 ML VIAL IVP ONE (12:00)
[2025-10-12] MEDS ORDERED: METOPROLOL TARTRATE 5 MG/5 ML VIAL ONE (12:00)
[2025-10-12] MEDS ORDERED: PROPOFOL 1% 20 ML VIAL IVP ONE (12:00)
[2025-10-12] MEDS ORDERED: LIDOCAINE/PF 2% 5 ML VIAL ONE (12:00)
[2025-10-12] MEDS ORDERED: DEXAMETHASONE SOD PHOS 4 MG/ML VIAL ONE (12:00)
[2025-10-12] MEDS ORDERED: FentaNYL CITRATE PF 100 MCG/2 ML VIAL ONE (12:00)
[2025-10-12] MEDS ORDERED: MIDAZOLAM HCL 2 MG/2 ML VIAL ONE (12:00)
[2025-10-12] MEDS ORDERED: RINGERS SOLUTION,LACTATED 1,000 ML IV ONE (14:38)
[2025-10-12] MEDS: ETHYL ALCOHOL 62% ANTISEPTIC NASAL SANITIZER 0.6 ML AMPUL NASAL ONE (14:55)
[2025-10-12] MEDS ORDERED: BUPIVACAINE HCL/PF 0.5% 30 ML VIAL ONE (14:56)
[2025-10-12] MEDS ORDERED: HYDROGEN PEROXIDE 3% 473 ML SOLUTION ONE (14:56)
[2025-10-12] MEDS ORDERED: FentaNYL CITRATE PF 100 MCG/2 ML VIAL IVP PRN (15:00)
[2025-10-12] MEDS ORDERED: MEPERIDINE-PF 25 MG/ML VIAL IVP PRN (15:00)
[2025-10-12] MEDS: CHLORHEXIDINE GLUCONATE 2% TOWELETTE [2'S/6'S] TP ONE (15:05)
[2025-10-12] MEDS ORDERED: MetroNIDAZOLE 500 MG/NACL 100 ML IV ONE (15:19)
[2025-10-12] MEDS: BUPIVACAINE 0.25%/EPI 1:200,000/PF 30 ML VIAL ONE (15:40)
[2025-10-12] MEDS ORDERED: MORPHINE SULFATE 4 MG/ML SYRINGE IVP PRN (16:00)
[2025-10-12] MEDS: IPRATROPIUM BROMIDE 0.5 MG/2.5 ML NEB SOLUTION NEB ONE (16:15)
[2025-10-12] MEDS: ALBUTEROL SULFATE 2.5 MG/0.5 ML NEB SOLUTION NEB ONE (16:36)
[2025-10-12 16:37] VITALS: PULSE 91; RESP 25; O2SAT 100
[2025-10-12 16:50] VITALS: PULSE 91; RESP 25; O2SAT 97
[2025-10-12] MEDS: IBUPROFEN 400 MG TABLET PO SCH (17:31)
[2025-10-12] MEDS ORDERED: ALBUTEROL SULFATE 2.5 MG/0.5 ML NEB SOLUTION NEB SCH (19:00)
[2025-10-12 19:24] VITALS: BP 126/95; PULSE 107; RESP 18; TEMP 98.1; O2SAT 96
[2025-10-12] MEDS: FAMOTIDINE 20 MG TABLET PO SCH (20:13)
[2025-10-12] MEDS: MINERAL OIL 30 ML UDCUP PO SCH (20:13)
[2025-10-13] MEDS: OXYGEN THERAPY IH SCH (00:31)
[2025-10-13 04:37] VITALS: BP 126/75; PULSE 62; RESP 18; TEMP 98.1; O2SAT 99
[2025-10-13 07:52] LABS: PLATELET COUNT (AUTO) 410 K/uL (150-450); RED BLOOD CELL COUNT(AUTO) 4.55 MIL/uL (4.50-5.90); RED CELL DISTRIBUTION WIDTH 12.8 % (11.5-14.5); WHITE BLOOD COUNT (AUTO) 10.7 K/uL (4.5-11.0)
[2025-10-13 08:00] VITALS: BP 110/59; PULSE 58; RESP 20; TEMP 97.9; O2SAT 100
[2025-10-13 08:03] LABS: CALCIUM, TOTAL 8.4 mg/dL (8.8-10.5); CREATININE 1.18 mg/dL (0.60-1.30); GLOMERULAR FILTR. RATE CALC > 60 mL/min (>60); GLUCOSE,RANDOM 138 mg/dL (70-110); SODIUM SERUM 139 mmol/L (136-145); UREA NITROGEN, BLOOD 11 mg/dL (7-18)
[2025-10-13] MEDS ORDERED: SULF1TAB94 PO (10:13)
[2025-10-13] MEDS: HYDROCODONE/ACETAMINOPHEN 5-325 MG TABLET PO PRN (10:18)
[2025-10-13 16:00] VITALS: BP 116/71; PULSE 55; RESP 20; TEMP 97.7; O2SAT 100
[2025-10-13] MEDS ORDERED: AMOX-426 PO (16:03)
== END 2025-10-13 17:30 | disposition home or self-care (01) | DRG 226 ==
LOC: EMS 18:27 → EDH 22:49 → 4E 10-12 01:20
PROVIDERS: ADMIT Internal Medicine; ATTEND Internal Medicine
PROC: 0D9P0ZZ Drainage of Rectum, Open Approach (ICD-10-PCS; principal; 2025-10-12 15:00)
DX: K61.2 Anorectal abscess (principal); E66.9 Obesity, unspecified; R65.10 Systemic inflammatory response syndrome (SIRS) of non-infectious origin without acute organ dysfunction; K61.1 Rectal abscess; K62.89 Other specified diseases of anus and rectum; Z68.33 Body mass index [BMI] 33.0-33.9, adult; Z79.899 Other long term (current) drug therapy
CPT/HCPCS: 74177; 80048; 81003; 83605; 85025; 87040; 87070; 87081; 87205; 88305; 94640; 99285; G0238; G0378; J0690; J1100; J2250; J2405; J2543; J2704; J3010; J3490; J7030; J7050; J7120; Q9967